=== PATIENT | female | born 1955 | race Caucasian/White ===

== ENCOUNTER → 2018-10-24 | Day surgery (SDC) | payer MEDICARE ==
[2018-10-22 14:58] LABS: BASOPHILS # (AUTO) 0.1 (0.0-0.1); EOSINOPHILS # (AUTO) 0.3 (0.0-0.4); EOSINOPHILS % 3.2 % (0.0-6.0); HEMATOCRIT 39.4 % (34.2-44.1); HEMOGLOBIN 13.6 g/dL (12.0-16.0); LYMPHOCYTES % 38.8 % (18.0-39.1); MEAN CORPUSCULAR HEMOGLOBIN 31.6 pg (28-32); MEAN CORPUSCULAR HGB CONC 34.5 g/dL (31-35); MEAN CORPUSCULAR VOLUME 91.6 fL (81-99); MONOCYTES # (AUTO) 0.8 (0.2-0.8); NEUTROPHILS # (AUTO) 3.6 (2.1-6.9); NEUTROPHILS % 46.7 % (38.7-80.0); PLATELET COUNT 240 x10e3/uL (140-360); RED CELL DISTRIBUTION WIDTH 12.3 % (11.7-14.4)
[~2018-10-24] MED LIST: COQ-10100 MG PO; FENTANYL CITRATE/PF 100MCG/2 ML INJ ONE; GLUCAGON FOR INJ 1 MG VIAL ONE; HYOSCYAMINE SULFATE 0.5 MG/ML INJ ONE; MIDAZOLAM HCL 2 MG/2 ML VIAL ONE; MULTIVITAMINS1 EAC7 PO; PANTOPRAZOLE SO40 MG PO; PROPOFOL IV EMULSION 10 MG/ML 50 ML VIAL ONE; VITAMIN D35000 UNI1 PO; Z.0.LISINOPRIL20 MG PO; Z.0.OMEPRAZOLE20 M1 PO; Z.0.SYNTHROID88 MCG PO; [UNRECOGNIZED DRUG - OTHER] PO
[2018-10-24 12:25] VITALS: BP 113/75
--- NOTE | 2018-10-24 13:17 | Operative Report ---
DATE OF PROCEDURE: October 24, 2018 REFERRING PHYSICIAN: Dr. Ross Del Real. PROCEDURES PERFORMED: 1. Esophagogastroduodenoscopy with biopsies. 2. Colonoscopy with polypectomy and biopsies. INDICATIONS FOR ESOPHAGOGASTRODUODENOSCOPY: History of heartburn indigestion. INDICATIONS FOR COLONOSCOPY: Surveillance colonoscopy, personal history of colon polyps. MEDICATION: Patient was done under MAC. Please see anesthesiologist's note. PROCEDURE: With the patient in the left lateral decubitus position, the flexible fiberoptic Olympus gastroscope was introduced into the esophagus under direct visualization without any difficulty. There was some patchy erythema noted in the distal esophagus. The scope was then advanced with ease into the stomach, traversing a small sliding hiatal hernia. Mucosa overlying the antrum and the body revealed some diffuse erythema and low-grade edema, and biopsies were obtained and sent to stain for H. pylori. Some hyperplastic-appearing polyps were noted in the body of the stomach, and some were partially excised with the cold biopsy forceps. The pylorus was of normal contour and shape, was intubated with ease, and the scope was advanced all the way to the 2nd portion of the duodenum. The scope was then withdrawn slowly. Mucosa overlying the proximal 2nd portion and the duodenal bulb appeared to be within normal limits. The scope was then withdrawn back into the stomach and retroflexed. The mucosa overlying the fundus and the cardia appeared to be within normal limits. The scope was then straightened out. The stomach was decompressed. The scope was subsequently withdrawn. Patient tolerated the procedure well. IMPRESSION: 1. Distal esophagitis, mild. 2. Small sliding hiatal hernia. 3. Gastritis biopsied. Biopsies sent to stain for H. pylori. 4. Gastric polyps, hyperplastic-appearing, body of stomach, some partially excised with the cold biopsy forceps. PLAN: Follow up histology. Continue Protonix 40 mg 1 p.o. a.c. b.i.d. Patient was then turned around and after adequate lubrication of the anal canal, a flexible fiberoptic Olympus colonoscope was inserted into the rectum with ease and advanced all the way to the cecum. The scope utilized was the EGD scope as the patient had a sharply angulated sigmoid colon that could not be negotiated even with the pediatric colonoscope. The ileocecal valve was somewhat lobular, and that was biopsied. The scope was then withdrawn slowly. Mucosa overlying the ascending and the transverse appeared to be within normal limits. Some diverticular disease was noted in the distal descending and the sigmoid colon. Two polyps were hot biopsied from the sigmoid colon. The rectum appeared to be within normal limits. The scope was then retroflexed into the distal rectum and small internal hemorrhoids were noted, none of which was actively bleeding. The scope was then straightened out. It was subsequently withdrawn. Patient tolerated procedure well. IMPRESSION: 1. Prominent ileocecal valve biopsied. 2. Diverticulosis. 3. Sigmoid colon polyps times 2 hot biopsied. 4. Internal hemorrhoids, none actively bleeding. PLAN: Follow up histology. Initiate high-fiber low-fat diet. Initiate high-fiber supplement. Patient might benefit from a followup colonoscopy in 3 to 5 years. Start VSL#3 one p.o. daily. Job#: [id number] EV cc:ROSS DEL REAL DO
== END | disposition home or self-care (01) ==
LOC: OR 08:46
PROVIDERS: ATTEND Internal Medicine Gastroenterology
DX: K29.70 Gastritis, unspecified, without bleeding (principal); K44.9 Diaphragmatic hernia without obstruction or gangrene; K31.7 Polyp of stomach and duodenum; K63.5 Polyp of colon; I10 Essential (primary) hypertension; E78.5 Hyperlipidemia, unspecified; F41.9 Anxiety disorder, unspecified; F17.290 Nicotine dependence, other tobacco product, uncomplicated; K57.30 Diverticulosis of large intestine without perforation or abscess without bleeding; K64.8 Other hemorrhoids; K21.0 Gastro-esophageal reflux disease with esophagitis
CPT/HCPCS: 36415; 43239; 45380; 85025; 88305; 88312; 93005; J1610; J1980; J2250; J2704; 45378; 45384

== ENCOUNTER 2018-12-16 22:13 | Emergency (ER) | payer MEDICARE, OTHER ==
[~2018-12-16] VITALS: Ht 160 cm; Wt 79.4 kg
[~2018-12-16 22:13] MED LIST changes: -FENTANYL CITRATE/PF 100MCG/2 ML INJ ONE; -GLUCAGON FOR INJ 1 MG VIAL ONE; -HYOSCYAMINE SULFATE 0.5 MG/ML INJ ONE; -MIDAZOLAM HCL 2 MG/2 ML VIAL ONE; -PROPOFOL IV EMULSION 10 MG/ML 50 ML VIAL ONE
[2018-12-16] MEDS ORDERED: ACETAMINOPHEN 1000 MG/100 ML IV STA (22:46)
[2018-12-16] MEDS ORDERED: ONDANSETRON HCL INJ 2MG/ML 2ML 2 MG/ML VIAL IV STA (22:46)
[2018-12-16] MEDS ORDERED: MORPHINE SULFATE INJ 4 MG/ML INJ 1ML IV STA (22:46)
[2018-12-16] MEDS ORDERED: DIATRIZOATE MEGL/DIATRIZOA SOD 30 ML BTL PO ONE (23:04)
[2018-12-16 23:19] LABS: CLARITY,URINE CLEAR (CLEAR); COLOR,URINE YELLOW (YELLOW); LEUKOCYTE ESTERASE ,URINE NEGATIVE (NEGATIVE)
[2018-12-16 23:20] LABS: BILIRUBIN,URINE NEGATIVE (NEGATIVE); KETONES,URINE NEGATIVE (NEGATIVE); NITRITE,URINE NEGATIVE (NEGATIVE); PROTEIN,URINE DIPSTICK NEGATIVE (NEGATIVE); URINE UROBILINOGEN 0.2 mg/dL (0.2 - 1)
[2018-12-16 23:25] LABS: BASOPHILS # (AUTO) 0.1 (0.0-0.1); BASOPHILS % 0.4 % (0.0-1.0); EOSINOPHILS # (AUTO) 0.1 (0.0-0.4); EOSINOPHILS % 0.8 % (0.0-6.0); HEMATOCRIT 41.3 % (34.2-44.1); HEMOGLOBIN 14.2 g/dL (12.0-16.0); LYMPHOCYTES # (AUTO) 2.1 (1.0-3.2); MEAN CORPUSCULAR HGB CONC 34.4 g/dL (31-35); MONOCYTES # (AUTO) 1.5 (0.2-0.8); MONOCYTES % 10.2 % (4.4-11.3); NEUTROPHILS # (AUTO) 11.1 (2.1-6.9); NEUTROPHILS % 74.1 % (38.7-80.0); PLATELET COUNT 254 x10e3/uL (140-360); RED BLOOD COUNT 4.44 x10e6/uL (3.6-5.1); RED CELL DISTRIBUTION WIDTH 12.9 % (11.7-14.4)
[2018-12-16 23:30] LABS: BACTERIA,URINE FEW /HPF; EPITHELIAL CELLS,URINE MODERATE /LPF; WBC,URINE (MAN) 0-5 /HPF (0-5); YEAST,URINE RARE
[2018-12-16 23:42] LABS: ALANINE AMINOTRANSFERASE 17 IU/L (0-55); ALBUMIN 3.8 g/dL (3.5-5.0); ALBUMIN/GLOBULIN RATIO 1.2 (0.8-2.0); ALKALINE PHOSPHATASE 88 IU/L (40-150); AMYLASE 34 U/L (25-125); ANION GAP 13.8 mmol/L (8-16); BLOOD UREA NITROGEN 16 mg/dL (7-26); BUN/CREATININE RATIO 19 (6-25); CALCIUM 9.8 mg/dL (8.4-10.2); CARBON DIOXIDE 24 mmol/L (22-29); CHLORIDE 103 mmol/L (98-107); CREATININE, SERUM 0.85 mg/dL (0.57-1.11); EST GLOMERULAR FILTRATION RATE > 60 ML/MIN (60-); GLUCOSE 99 mg/dL (74-118); LIPASE 11 U/L (8-78); POTASSIUM 3.8 mmol/L (3.5-5.1); SODIUM 137 mmol/L (136-145)
[2018-12-17] MEDS ORDERED: SODIUM CHLORIDE 0.9% 50ML 50 ML ONE
[2018-12-17] MEDS ORDERED: IOPAMIDOL 370 MG/ML 200 ML INFUS..BTL INJ ONE (00:01)
--- NOTE | 2018-12-17 00:56 | Diagnostic Imaging Report ---
EXAM: CT Abdomen and Pelvis WITH contrast INDICATION: llq pain, fever and diarrhea COMPARISON: None. TECHNIQUE: Abdomen and pelvis were scanned utilizing a multidetector helical scanner from the lung base to the pubic symphysis after administration of IV contrast. Coronal and sagittal reformations were obtained. Routine protocol was performed. Scan was performed when during portal venous phase. IV CONTRAST: 100 mL of Isovue 370 ORAL CONTRAST: Gastrografin COMPLICATIONS: None RADIATION DOSE: Total DLP: 513.5 mGy*cm Estimated effective dose: (DLP x 0.015 x size factor) mSv Dose modulation, iterative reconstruction, and/or weight based adjustment of the mA/kV was utilized to reduce the radiation dose to as low as reasonably achievable. FINDINGS: LINES and TUBES: None. LOWER THORAX: Unremarkable HEPATOBILIARY: Hepatic steatosis. No focal hepatic lesions. No biliary ductal dilation. GALLBLADDER: No radio-opaque stones or sludge. No wall thickening. SPLEEN: No splenomegaly. PANCREAS: No focal masses or ductal dilatation. ADRENALS: Low attenuating 1.7 cm nodule in the right adrenal gland, indeterminate by density on this postcontrast exam. Although no images available at the time of dictation to directly confirm, CT report 02/08/2012 describes a 1.7 cm nodule. Stability suggests a benign lesion such as adenoma. No left adrenal nodule. KIDNEYS/URETERS: Kidneys enhance symmetrically. No hydronephrosis. Subcentimeter left renal hypodensity too small to characterize but statistically likely cyst. Punctate nonobstructing left inferior pole stone. GI TRACT: Wall thickening and peridiverticular stranding involving the proximal sigmoid colon. No abscess. No air. No evidence of obstruction. Appendectomy. PELVIC ORGANS/BLADDER: Hysterectomy. Otherwise, unremarkable. LYMPH NODES: No lymphadenopathy. Scattered subcentimeter retroperitoneal nodes. VESSELS: Left renal artery 0.8 cm possible saccular aneurysm. There is moderate atherosclerotic disease in the aorta and major arterial branches. PERITONEUM / RETROPERITONEUM: No free air or fluid. BONES: There are degenerative changes in the lumbar spine. SOFT TISSUES: Unremarkable. IMPRESSION: Acute uncomplicated sigmoid colonic diverticulitis. Signed by: DR. Adalberto Daley MD on 12/17/2018 12:52 AM
[2018-12-17 01:41] VITALS: BP 127/71
== END 2018-12-17 02:00 | disposition home or self-care (01) ==
LOC: ER 22:13
DX: R10.84 Generalized abdominal pain (principal); R11.0 Nausea; R19.7 Diarrhea, unspecified; K57.32 Diverticulitis of large intestine without perforation or abscess without bleeding; I10 Essential (primary) hypertension; K21.9 Gastro-esophageal reflux disease without esophagitis; F41.9 Anxiety disorder, unspecified
CPT/HCPCS: 36415; 74177; 80053; 81001; 82150; 83690; 85025; 96374; 96375; 99284; J0131; J2270; J2405

== ENCOUNTER → 2019-06-07 | Outpatient (CLI) | payer MEDICARE ==
[~2019-06-07] MED LIST changes: +IOPAMIDOL 370 MG/ML 200 ML INFUS..BTL INJ ONE; +SODIUM CHLORIDE 0.9% 50ML 50 ML ONE
[2019-06-07 17:20] LABS: BLOOD UREA NITROGEN 17 mg/dL (7-26); BUN/CREATININE RATIO 19 (6-25); CREATININE, SERUM 0.89 mg/dL (0.57-1.11); EST GLOMERULAR FILTRATION RATE > 60 ML/MIN (60-)
--- NOTE | 2019-06-08 07:04 | Diagnostic Imaging Report ---
EXAMINATION: CT scan of the chest with contrast. TECHNIQUE: Spiral CT images of the chest were performed from the lung apices to the level of the adrenal glands after the intravenous administration of 100 cc of Isovue 370 . Coronal and sagittal reformatted images were obtained. COMPARISON: Outside chest x-rays not available for comparison. CT abdomen 12/17/2018 CLINICAL HISTORY:Abnormal outside chest x-ray, multiple pulmonary nodular densities DISCUSSION: LINES/TUBES: None. LUNGS AND AIRWAYS: 3-4 mm pulmonary nodule in the left upper lobe (series 3, image 44). No other pulmonary nodules. No masses or consolidation. Wedge-shaped 4-5 mm subpleural nodular density in the right upper lobe is consistent with focal atelectasis or scarring (series 3, image 29). No significant bronchiectasis. Airways are clear, without endobronchial lesions. PLEURA: No pneumothorax or pleural effusions. HEART AND MEDIASTINUM: The thyroid gland is normal. Heart size is normal. No pericardial effusion. Mild atherosclerotic calcification of the aortic valves and thoracic aorta. Aorta is not aneurysmal. Main pulmonary artery is normal in caliber, measuring 2.4 cm. LYMPH NODES: There is no mediastinal, hilar or axillary lymphadenopathy. ABDOMEN: Limited contrast-enhanced views of the upper abdomen show no abnormality within the visualized spleen, pancreas. Diffuse hepatic steatosis. Punctate nonobstructing calculi in the left superior renal pole (series 2, image 107). Stable 1.8 cm low-attenuation lesion in the right adrenal gland (series 2, image 101). Left adrenal gland is unremarkable. BONES AND SOFT TISSUES: No aggressive lytic lesions. Degenerative changes in the thoracic spine, with presence of osteophytosis and narrowing of the intervertebral disc spaces. Soft tissues are grossly unremarkable.. IMPRESSION: 1. Single 3-4 mm pulmonary nodule in the left upper lobe. Consider follow-up low-dose nodule protocol chest CT in 12 months to document stability in this high-risk patient with history of smoking. 2. Stable 1.8 cm low-attenuation lesion in the right adrenal gland. Prior CT dated 12/17/2018 describes prior report from 2012 with stable lesion, which favors a benign etiology like an adenoma. This may be assessed with CT abdomen adrenal mass protocol on a nonemergent basis. 3. Diffuse hepatic steatosis. 4. Punctate nonobstructing calculi in the left superior renal pole. Signed by: Dr. Sivakumar Brizuela M.D. on 06/08/2019 7:00 AM
== END ==
LOC: CT 16:24
PROVIDERS: ATTEND Family Medicine
DX: R91.8 Other nonspecific abnormal finding of lung field (principal); R05 Cough; R06.02 Shortness of breath; R06.2 Wheezing
CPT/HCPCS: 36415; 71260; 82565; 84520; Q9967

== ENCOUNTER → 2020-03-17 | Outpatient (CLI) | payer MEDICARE ==
[~2020-03-17] MED LIST changes: -IOPAMIDOL 370 MG/ML 200 ML INFUS..BTL INJ ONE; -SODIUM CHLORIDE 0.9% 50ML 50 ML ONE
--- NOTE | 2020-03-17 14:33 | Diagnostic Imaging Report ---
CT BRAIN WO HISTORY: Vertigo COMPARISON: None. Technique: Noncontrast axial scans were obtained from skull base to the vertex. Coronal and sagittal reconstructions obtained from the axial data. One or more of the following dose reduction techniques were used: Automated exposure control, adjustment of the mA and/or kV according to patient size, and/or utilization of iterative reconstruction technique. DISCUSSION: Scalp/Skull: Unremarkable. Brain sulci: Mildly prominent. Ventricles: Compensatory dilatation. Extra-axial spaces: No masses or fluid collections. Carotid siphon calcifications are present. Parenchyma: Mild bilateral deep white matter hypodensity is likely chronic microvascular ischemic change. Otherwise, no masses, hemorrhage, or large vascular territory acute infarct. Dural sinuses: No abnormal densities. Sellar/Suprasellar region: Intact. Skull base: Intact. Incidental findings: None. IMPRESSION: 1. No acute intracranial abnormalities. 2. Mild supratentorial chronic microvascular ischemic change. Mild generalized cerebral volume loss. Signed by: Dr. Didier Coknlin M.D. on 03/17/2020 2:29 PM
== END ==
LOC: CT 13:52
PROVIDERS: ATTEND Family Medicine
DX: G44.099 Other trigeminal autonomic cephalgias (TAC), not intractable (principal); R42 Dizziness and giddiness; R26.81 Unsteadiness on feet
CPT/HCPCS: 70450

== ENCOUNTER → 2021-06-08 | Outpatient (CLI) | payer OTHER | LOC: MRI 09:58 | PROVIDERS: ATTEND Family Medicine | DX: S79.912A Unspecified injury of left hip, initial encounter (principal); M70.62 Trochanteric bursitis, left hip; W19.XXXA Unspecified fall, initial encounter ==